=== PATIENT | female | born 1960 | race Caucasian/White ===

== ENCOUNTER 2020-03-22 17:56 | Inpatient (IN) | payer MEDICAID ==
[~2020-03-22] VITALS: Ht 152.4 cm; Wt 86.8 kg
--- NOTE | 2020-03-22 18:46 | NUR ---
DR. CASE AT BEDSIDE. PT C/O COUGH FOR 2 DAYS, DENIES FEVERS OR PHLEGM, BUT HAS HAD BODY AHCES AND FEELS WEAK. PT ON MONITOR AND OXYGEN. WAITING FOR ORDERS.
[2020-03-22] MEDS ORDERED: SODIUM CHLORIDE FLUSH 10ML SYR IVF ONE (19:00)
[2020-03-22] MEDS ORDERED: SODIUM CHLORIDE 0.9% 1,000ML IVBOLUS ONE (19:00)
[2020-03-22] MEDS ORDERED: AZITHROMYCIN 500 MG in SODIUM CHLORIDE 0.9% 250 ML IVPB ONE (19:30)
[2020-03-22] MEDS ORDERED: CEFTRIAXONE PMX 1GM/50ML 50 ML IVPB ONE (19:30)
[2020-03-22 19:43] LABS: ANION GAP 7 mmol/L (5-15); CALCIUM 9.1 mg/dL (8.5-10.1); CHLORIDE 104 mmol/L (98-107); CREATININE 1.18 mg/dL (0.55-1.02)
[2020-03-22 19:44] LABS: ALANINE AMINOTRANSFERASE 29 U/L (12-78); ALBUMIN 2.8 g/dL (3.4-5.0)
[2020-03-22 19:45] LABS: MEAN CORPUSCULAR HEMOGLOBIN 29.3 pg (27.0-34.8); MEAN CORPUSCULAR HGB CONC 32.2 g/dL (32.4-35.8); MEAN CORPUSCULAR VOLUME 91.1 fL (80-100); MEAN PLATELET VOLUME 7.9 fL (7.4-10.4); PLATELET COUNT 263 x10^3/uL (130-400); RED BLOOD COUNT 4.27 x10^6/uL (3.82-5.3); RED CELL DISTRIBUTION WIDTH 14.8 % (9.6-15.2)
[2020-03-22 19:48] LABS: ALKALINE PHOSPHATASE 117 U/L (45-117); BILIRUBIN,TOTAL 0.4 mg/dL (0.2-1.0); TOTAL PROTEIN 8.5 g/dL (6.4-8.2); TROPONIN I < 0.015 ng/mL (0.000-0.045)
[2020-03-22 19:53] LABS: T4 (THYROXINE) 11.6 mcg/dL (4.8-13.9)
[2020-03-22 20:14] LABS: BASOPHILS % (AUTO) 0 % (0-1); EOSINOPHILS # (AUTO) 0.02 x10^3/uL (0-0.4); EOSINOPHILS % (AUTO) 0 % (1-7); LYMPHOCYTES # (AUTO) 1.35 x10^3/uL (1-3.4); LYMPHOCYTES % (AUTO) 9 % (22-44); MD SCAN; MONOCYTES # (AUTO) 0.42 x10^3/uL (0.2-0.8); MONOCYTES % (AUTO) 3 % (2-9); NEUTROPHILS # (AUTO) 13.46 x10^3/uL (1.8-6.8); NEUTROPHILS % (AUTO) 88 % (42-75)
--- NOTE | 2020-03-22 20:24 | NUR ---
PT HAS POSITIVE D-DIMER SO CTA OF THE CHEST ORDERED. PT DENIES ANY NEEDS AT THIS TIME. CXR INDICATED SOME OPACITIES SO ANTIBIOTICS ORDERED.
--- NOTE | 2020-03-22 20:41 | NUR ---
PT TO CT.
[2020-03-22] MEDS ORDERED: CEFTRIAXONE PMX 1GM/50ML 50 ML ONE (20:42)
[2020-03-22] MEDS ORDERED: OMNIPAQUE 350 MG/ML, 100ML BOTTLE ONE (20:52)
--- NOTE | 2020-03-22 20:56 | NUR ---
PT BACK FROM CT. ANTIBIOTICS STARTED PER MD ORDER.
[2020-03-22] MEDS ORDERED: DEXAMETHASONE 4 MG/ML, 1ML IVPush ONE (21:00)
[2020-03-22] MEDS ORDERED: DEXAMETHASONE 4 MG/ML, 5ML ONE (21:15)
--- NOTE | 2020-03-22 21:40 | NUR ---
ADMIT MD AT BEDSIDE. WAITING FOR FURTHER ORDERS. PT DENIES ANY NEEDS AT THIS TIME. WAITING FOR BED ASSIGNMENT.
[2020-03-22] MEDS ORDERED: ACETAMINOPHEN 325 MG TABLET ONE (21:44)
--- NOTE | 2020-03-22 21:55 | NUR ---
REPORT TO YURY SOLIS.
[2020-03-22] MEDS ORDERED: IBUPROFEN 600 MG TABLET PO PRN (22:00)
[2020-03-22] MEDS ORDERED: hydrALAzine 20 MG/ML, 1ML IVPush PRN (22:00)
[2020-03-22] MEDS ORDERED: ACETAMINOPHEN 325 MG TABLET PO PRN (22:00)
[2020-03-22] MEDS ORDERED: ONDANSETRON 2MG/ML, 2ML IVPush PRN (22:00)
[2020-03-22] MEDS ORDERED: AZITHROMYCIN 500 MG in SODIUM CHLORIDE 0.9% 250 ML IV SCH (22:00)
[2020-03-22] MEDS ORDERED: CEFTRIAXONE PMX 1GM/50ML 50 ML IV SCH (22:00)
--- NOTE | 2020-03-22 22:01 | NUR ---
ATTEMPTED TO COMPLETE MEDICATION LIST BUT PT JUST HAD THE PILLS AND DID NOT KNOW THE DOSAGE OR NAMES. PER PT SHE USES [facility].
[2020-03-22] MEDS ORDERED: ENOXAPARIN 40 MG/0.4 ML ONE (22:18)
[2020-03-22] MEDS: SODIUM CHLORIDE 0.9% 1,000 ML IV SCH (22:22)
[2020-03-22] MEDS: ENOXAPARIN 40 MG/0.4 ML SQ SCH (22:22)
[2020-03-22 22:27] LABS: HCT (SEDRATE) 38.9 % (34.6-47.8)
[2020-03-22] MEDS: INSULIN LISPRO 100 UNITS/ML, PEN SQ-INSULIN SCH (22:30)
--- NOTE | 2020-03-22 22:30 | NUR ---
REPORT RECEIVED AND CARE ASSUMED. PT MEDICATED PER NOV. FSBS WNL. ANTIBIOTICS INFUSING. SINUS TACHY ON MONITOR 101 BPM. PT WITH MILDLY RAPID RESP. DENIES DISCOMFORT OR SEVERE SOB AT THIS TIME. WILL CONTINUE TO MONITOR. RESP IN TO EVAL. RECOMMENDS IS. OTHERWISE NO FURTHER ORDERS AT THIS TIME. CALL LIGHT IN REACH. PT REPOSITIONED FOR COMFORT. NO FURTHER NEEDS EXPRESSED AT THIS TIME.
--- NOTE | 2020-03-22 23:10 | NUR ---
PT ASSISTED TO BEDSIDE COMMODE. C/O INCREASED SOB WITH MOVING. VS REMAIN UNCHANGED. PT CONTINUES WITH MILD RAPID RESP AND TACHYCARDIA, OTHERWISE VSS. SINUS TACHY ON MONITOR. PT TRANSFERRED TO A HOSPITAL BED. PO WATER GIVEN PER REQUEST. CALL LIGHT IN REACH. NO FURTHER NEEDS EXPRESSED.
--- NOTE | 2020-03-23 00:05 | NUR ---
PT SLEEPING WITH NO ACUTE DISTRESS NOTED. RESP ARE RAPID. WILL CONTINUE TO MONITOR CLOSELY. PT O2 96% ON 2L NC. VSS. NSR ON MONITOR. CALL LIGHT IN REACH.
[2020-03-23 01:02] LABS: TROPONIN I < 0.015 ng/mL (0.000-0.045)
--- NOTE | 2020-03-23 01:20 | NUR ---
PT SLEEPING WITH NO ACUTE CHANGES NOTED. RESP REMAIN MILDLY RAPID. WILL CONTINUE TO MONITOR CLOSELY. OTHERWISE VSS. CALL LIGHT IN REACH.
[2020-03-23 03:19] VITALS: BP 132/73
[2020-03-23 06:58] LABS: MEAN CORPUSCULAR HEMOGLOBIN 29.4 pg (27.0-34.8); MEAN CORPUSCULAR HGB CONC 31.9 g/dL (32.4-35.8); MEAN CORPUSCULAR VOLUME 92.1 fL (80-100); MEAN PLATELET VOLUME 7.4 fL (7.4-10.4); PLATELET COUNT 253 x10^3/uL (130-400); RED BLOOD COUNT 4.01 x10^6/uL (3.82-5.3); RED CELL DISTRIBUTION WIDTH 14.8 % (9.6-15.2)
[2020-03-23 07:02] LABS: ANION GAP 11 mmol/L (5-15); CALCIUM 8.7 mg/dL (8.5-10.1); CHLORIDE 110 mmol/L (98-107); CREATININE 0.85 mg/dL (0.55-1.02)
[2020-03-23 07:07] LABS: TROPONIN I < 0.015 ng/mL (0.000-0.045)
[2020-03-23 07:40] LABS: BASOPHILS # (AUTO) 0.01 x10^3/uL (0-0.1); BASOPHILS % (AUTO) 0 % (0-1); EOSINOPHILS % (AUTO) 0 % (1-7); LYMPHOCYTES # (AUTO) 1.13 x10^3/uL (1-3.4); LYMPHOCYTES % (AUTO) 10 % (22-44); MD SCAN; MONOCYTES # (AUTO) 0.06 x10^3/uL (0.2-0.8); MONOCYTES % (AUTO) 1 % (2-9); NEUTROPHILS # (AUTO) 10.01 x10^3/uL (1.8-6.8); NEUTROPHILS % (AUTO) 89 % (42-75)
[2020-03-23 07:41] VITALS: BP 127/67
[2020-03-23] MEDS: INSULIN LISPRO 100 UNITS/ML, PEN SQ-INSULIN SCH ×4 (09:29→20:20)
[2020-03-23 12:48] VITALS: BP 125/66
[2020-03-23] MEDS: SODIUM CHLORIDE 0.9% 1,000 ML IV SCH (16:36)
[2020-03-23] MEDS ORDERED: EMPA25TA PO (17:30)
[2020-03-23] MEDS ORDERED: METF500T17 PO (17:30)
[2020-03-23] MEDS ORDERED: INSU100I34 SQ-INSULIN (17:30)
[2020-03-23] MEDS ORDERED: zantac PO (17:30)
[2020-03-23] MEDS ORDERED: LISI-167 PO (17:30)
[2020-03-23 19:10] VITALS: BP 131/62
[2020-03-23] MEDS: CEFTRIAXONE PMX 1GM/50ML 50 ML IV SCH (20:19)
[2020-03-23] MEDS: AZITHROMYCIN 500 MG in SODIUM CHLORIDE 0.9% 250 ML IV SCH (20:57)
[2020-03-23] MEDS: ENOXAPARIN 40 MG/0.4 ML SQ SCH (20:57)
[2020-03-23] MEDS ORDERED: INSULIN GLARGINE 100 UNITS/ML, PEN SQ-INSULIN SCH (21:00)
[2020-03-24 01:48] VITALS: BP 123/77
[2020-03-24] MEDS: SODIUM CHLORIDE 0.9% 1,000 ML IV SCH ×2 (03:56→18:31)
[2020-03-24 05:00] LABS: BASOPHILS # (AUTO) 0.03 x10^3/uL (0-0.1); BASOPHILS % (AUTO) 0 % (0-1); EOSINOPHILS # (AUTO) 0.01 x10^3/uL (0-0.4); EOSINOPHILS % (AUTO) 0 % (1-7); LYMPHOCYTES # (AUTO) 1.45 x10^3/uL (1-3.4); LYMPHOCYTES % (AUTO) 12 % (22-44); MD NO; MEAN CORPUSCULAR HEMOGLOBIN 29.2 pg (27.0-34.8); MEAN CORPUSCULAR HGB CONC 31.9 g/dL (32.4-35.8); MEAN CORPUSCULAR VOLUME 91.6 fL (80-100); MEAN PLATELET VOLUME 7.5 fL (7.4-10.4); MONOCYTES # (AUTO) 0.44 x10^3/uL (0.2-0.8); MONOCYTES % (AUTO) 4 % (2-9); NEUTROPHILS # (AUTO) 10.65 x10^3/uL (1.8-6.8); NEUTROPHILS % (AUTO) 85 % (42-75); PLATELET COUNT 288 x10^3/uL (130-400); RED BLOOD COUNT 3.92 x10^6/uL (3.82-5.3); RED CELL DISTRIBUTION WIDTH 14.7 % (9.6-15.2)
[2020-03-24 05:08] LABS: ANION GAP 6 mmol/L (5-15); CALCIUM 9.2 mg/dL (8.5-10.1); CHLORIDE 112 mmol/L (98-107); CREATININE 0.84 mg/dL (0.55-1.02)
[2020-03-24 07:25] VITALS: BP 126/74
[2020-03-24] MEDS ORDERED: INSULIN GLARGINE 100 UNITS/ML, PEN SQ-INSULIN ONE (08:00)
[2020-03-24] MEDS: INSULIN LISPRO 100 UNITS/ML, PEN SQ-INSULIN SCH ×4 (08:19→21:42)
[2020-03-24 12:17] VITALS: BP 113/48
[2020-03-24 20:27] VITALS: BP 143/72
[2020-03-24] MEDS ORDERED: INSULIN GLARGINE 100 UNITS/ML, PEN SQ-INSULIN SCH (21:00)
[2020-03-24] MEDS: CEFTRIAXONE PMX 1GM/50ML 50 ML IV SCH (21:07)
[2020-03-24] MEDS: ENOXAPARIN 40 MG/0.4 ML SQ SCH (21:07)
[2020-03-24] MEDS: AZITHROMYCIN 500 MG in SODIUM CHLORIDE 0.9% 250 ML IV SCH (21:42)
[2020-03-25] VITALS (7 sets, daily range): BP systolic 132–153; BP diastolic 66–84
[2020-03-25] MEDS: SODIUM CHLORIDE 0.9% 1,000 ML IV SCH ×2 (00:23→15:30)
[2020-03-25 06:23] LABS: BASOPHILS # (AUTO) 0.03 x10^3/uL (0-0.1); BASOPHILS % (AUTO) 0 % (0-1); EOSINOPHILS % (AUTO) 1 % (1-7); LYMPHOCYTES # (AUTO) 1.75 x10^3/uL (1-3.4); LYMPHOCYTES % (AUTO) 19 % (22-44); MD NO; MEAN CORPUSCULAR HEMOGLOBIN 29.2 pg (27.0-34.8); MEAN CORPUSCULAR HGB CONC 32.5 g/dL (32.4-35.8); MEAN CORPUSCULAR VOLUME 90.1 fL (80-100); MEAN PLATELET VOLUME 7.6 fL (7.4-10.4); MONOCYTES # (AUTO) 0.33 x10^3/uL (0.2-0.8); MONOCYTES % (AUTO) 4 % (2-9); NEUTROPHILS # (AUTO) 6.94 x10^3/uL (1.8-6.8); NEUTROPHILS % (AUTO) 76 % (42-75); PLATELET COUNT 256 x10^3/uL (130-400); RED BLOOD COUNT 3.72 x10^6/uL (3.82-5.3); RED CELL DISTRIBUTION WIDTH 14.6 % (9.6-15.2)
[2020-03-25 06:34] LABS: ANION GAP 8 mmol/L (5-15); CALCIUM 8.5 mg/dL (8.5-10.1); CHLORIDE 110 mmol/L (98-107); CREATININE 0.75 mg/dL (0.55-1.02)
[2020-03-25] MEDS: INSULIN LISPRO 100 UNITS/ML, PEN SQ-INSULIN SCH ×4 (07:42→21:52)
[2020-03-25] MEDS ORDERED: REMDESIVIR 200 MG in SODIUM CHLORIDE 0.9% 250 ML IVPB ONE (11:00)
[2020-03-25] MEDS: DEXAMETHASONE 4 MG TABLET PO SCH (11:08)
[2020-03-25 12:28] LABS: ALANINE AMINOTRANSFERASE 30 U/L (12-78)
[2020-03-25] MEDS: TOCILIZUMAB 600 MG in SODIUM CHLORIDE 0.9% 100 ML IVPB SCH (15:29)
[2020-03-25] MEDS ORDERED: INSULIN GLARGINE 100 UNITS/ML, PEN SQ-INSULIN SCH (21:00)
[2020-03-25] MEDS: CEFTRIAXONE PMX 1GM/50ML 50 ML IV SCH (21:47)
[2020-03-25] MEDS: ENOXAPARIN 40 MG/0.4 ML SQ SCH (21:47)
[2020-03-26 01:23] VITALS: BP 143/85
[2020-03-26 07:06] LABS: BASOPHILS # (AUTO) 0.02 x10^3/uL (0-0.1); BASOPHILS % (AUTO) 0 % (0-1); EOSINOPHILS # (AUTO) 0.05 x10^3/uL (0-0.4); EOSINOPHILS % (AUTO) 1 % (1-7); LYMPHOCYTES % (AUTO) 20 % (22-44); MD NO; MEAN CORPUSCULAR HEMOGLOBIN 29.2 pg (27.0-34.8); MEAN CORPUSCULAR HGB CONC 32.3 g/dL (32.4-35.8); MEAN CORPUSCULAR VOLUME 90.3 fL (80-100); MEAN PLATELET VOLUME 7.7 fL (7.4-10.4); MONOCYTES # (AUTO) 0.22 x10^3/uL (0.2-0.8); MONOCYTES % (AUTO) 3 % (2-9); NEUTROPHILS # (AUTO) 5.09 x10^3/uL (1.8-6.8); NEUTROPHILS % (AUTO) 76 % (42-75); PLATELET COUNT 318 x10^3/uL (130-400); RED BLOOD COUNT 4.05 x10^6/uL (3.82-5.3); RED CELL DISTRIBUTION WIDTH 14.5 % (9.6-15.2)
[2020-03-26 07:13] LABS: ALBUMIN 2.2 g/dL (3.4-5.0); ANION GAP 4 mmol/L (5-15); CALCIUM 8.7 mg/dL (8.5-10.1); CHLORIDE 109 mmol/L (98-107)
[2020-03-26 07:18] LABS: ALANINE AMINOTRANSFERASE 28 U/L (12-78); ALKALINE PHOSPHATASE 96 U/L (45-117); BILIRUBIN,TOTAL 0.2 mg/dL (0.2-1.0); CREATININE 0.68 mg/dL (0.55-1.02); TOTAL PROTEIN 7.3 g/dL (6.4-8.2)
[2020-03-26 07:56] VITALS: BP 158/88
[2020-03-26] MEDS: INSULIN LISPRO 100 UNITS/ML, PEN SQ-INSULIN SCH ×4 (08:19→20:26)
[2020-03-26] MEDS: DEXAMETHASONE 4 MG TABLET PO SCH (08:20)
[2020-03-26] MEDS: TOCILIZUMAB 600 MG in SODIUM CHLORIDE 0.9% 100 ML IVPB SCH (10:30)
[2020-03-26] MEDS: ZINC SULFATE 220 MG CAPSULE PO SCH (11:22)
[2020-03-26] MEDS: CHOLECALCIFEROL 1,000 UNIT TABLET PO SCH (11:23)
[2020-03-26] MEDS: AZITHROMYCIN 250 MG TABLET PO SCH (11:24)
[2020-03-26] MEDS: SODIUM CHLORIDE 0.9% 1,000 ML IV SCH (12:06)
[2020-03-26] MEDS: REMDESIVIR 100 MG in SODIUM CHLORIDE 0.9% 250 ML IVPB SCH (12:06)
[2020-03-26 14:45] VITALS: BP 157/84
[2020-03-26] MEDS: ASCORBIC ACID 500 MG TABLET PO SCH (16:06)
[2020-03-26] MEDS: ENOXAPARIN 40 MG/0.4 ML SQ SCH (20:24)
[2020-03-26] MEDS: CEFTRIAXONE PMX 1GM/50ML 50 ML IV SCH (20:24)
[2020-03-26] MEDS: INSULIN GLARGINE 100 UNITS/ML, PEN SQ-INSULIN SCH (20:25)
[2020-03-26] MEDS: MELATONIN 5 MG TABLET PO SCH (20:26)
[2020-03-26 21:26] VITALS: BP 162/78
[2020-03-27 01:17] VITALS: BP 161/83
[2020-03-27 06:21] LABS: ALBUMIN 2.1 g/dL (3.4-5.0); ANION GAP 5 mmol/L (5-15); CALCIUM 8.9 mg/dL (8.5-10.1); CHLORIDE 110 mmol/L (98-107)
[2020-03-27 06:25] LABS: ALANINE AMINOTRANSFERASE 40 U/L (12-78); ALKALINE PHOSPHATASE 83 U/L (45-117); BILIRUBIN,TOTAL 0.1 mg/dL (0.2-1.0); CREATININE 0.74 mg/dL (0.55-1.02); TOTAL PROTEIN 6.8 g/dL (6.4-8.2)
[2020-03-27] MEDS: INSULIN LISPRO 100 UNITS/ML, PEN SQ-INSULIN SCH ×4 (07:00→21:04)
[2020-03-27 08:06] VITALS: BP 138/71
[2020-03-27] MEDS: ZINC SULFATE 220 MG CAPSULE PO SCH (08:19)
[2020-03-27] MEDS: ASCORBIC ACID 500 MG TABLET PO SCH ×2 (08:19→17:24)
[2020-03-27] MEDS: DEXAMETHASONE 4 MG TABLET PO SCH (08:19)
[2020-03-27] MEDS: AZITHROMYCIN 250 MG TABLET PO SCH (08:20)
[2020-03-27] MEDS: CHOLECALCIFEROL 1,000 UNIT TABLET PO SCH (08:20)
[2020-03-27] MEDS: REMDESIVIR 100 MG in SODIUM CHLORIDE 0.9% 250 ML IVPB SCH (12:14)
[2020-03-27] MEDS: SODIUM CHLORIDE 0.9% 1,000 ML IV SCH (12:17)
[2020-03-27 13:17] VITALS: BP 128/63
[2020-03-27 20:26] VITALS: BP 158/81
[2020-03-27] MEDS: CEFTRIAXONE PMX 1GM/50ML 50 ML IV SCH (21:03)
[2020-03-27] MEDS: INSULIN GLARGINE 100 UNITS/ML, PEN SQ-INSULIN SCH (21:04)
[2020-03-27] MEDS: ENOXAPARIN 40 MG/0.4 ML SQ SCH (21:05)
[2020-03-27] MEDS: MELATONIN 5 MG TABLET PO SCH (21:05)
[2020-03-28] MEDS: SODIUM CHLORIDE 0.9% 1,000 ML IV SCH ×2 (04:09→19:39)
[2020-03-28 04:41] VITALS: BP 153/81
[2020-03-28 06:09] LABS: BASOPHILS # (AUTO) 0.03 x10^3/uL (0-0.1); BASOPHILS % (AUTO) 0 % (0-1); EOSINOPHILS # (AUTO) 0.06 x10^3/uL (0-0.4); EOSINOPHILS % (AUTO) 1 % (1-7); LYMPHOCYTES # (AUTO) 2.13 x10^3/uL (1-3.4); LYMPHOCYTES % (AUTO) 24 % (22-44); MD NO; MEAN CORPUSCULAR HEMOGLOBIN 29.5 pg (27.0-34.8); MEAN CORPUSCULAR VOLUME 89.3 fL (80-100); MEAN PLATELET VOLUME 7.1 fL (7.4-10.4); MONOCYTES # (AUTO) 0.36 x10^3/uL (0.2-0.8); MONOCYTES % (AUTO) 4 % (2-9); NEUTROPHILS # (AUTO) 6.38 x10^3/uL (1.8-6.8); NEUTROPHILS % (AUTO) 71 % (42-75); PLATELET COUNT 386 x10^3/uL (130-400); RED BLOOD COUNT 3.87 x10^6/uL (3.82-5.3); RED CELL DISTRIBUTION WIDTH 14.9 % (9.6-15.2)
[2020-03-28 06:18] LABS: CHLORIDE 109 mmol/L (98-107)
[2020-03-28 06:36] LABS: ALANINE AMINOTRANSFERASE 44 U/L (12-78); ALBUMIN 2.3 g/dL (3.4-5.0); ALKALINE PHOSPHATASE 78 U/L (45-117); ANION GAP 6 mmol/L (5-15); BILIRUBIN,TOTAL 0.2 mg/dL (0.2-1.0); CALCIUM 8.7 mg/dL (8.5-10.1); CREATININE 0.75 mg/dL (0.55-1.02); TOTAL PROTEIN 6.6 g/dL (6.4-8.2)
[2020-03-28] MEDS: INSULIN LISPRO 100 UNITS/ML, PEN SQ-INSULIN SCH ×4 (07:00→21:07)
[2020-03-28 07:46] VITALS: BP 119/69
[2020-03-28] MEDS: DEXAMETHASONE 4 MG TABLET PO SCH (09:40)
[2020-03-28] MEDS: AZITHROMYCIN 250 MG TABLET PO SCH (09:40)
[2020-03-28] MEDS: CHOLECALCIFEROL 1,000 UNIT TABLET PO SCH (09:40)
[2020-03-28] MEDS: ASCORBIC ACID 500 MG TABLET PO SCH ×2 (09:40→17:36)
[2020-03-28] MEDS: ZINC SULFATE 220 MG CAPSULE PO SCH (09:41)
[2020-03-28] MEDS ORDERED: ENOXAPARIN 40 MG/0.4 ML SQ SCH (10:00)
[2020-03-28] MEDS: REMDESIVIR 100 MG in SODIUM CHLORIDE 0.9% 250 ML IVPB SCH (12:12)
[2020-03-28 12:30] VITALS: BP 126/85
[2020-03-28 13:17] LABS: ALANINE AMINOTRANSFERASE 60 U/L (12-78); ALBUMIN 2.3 g/dL (3.4-5.0); ANION GAP 5 mmol/L (5-15); CALCIUM 8.6 mg/dL (8.5-10.1); CHLORIDE 109 mmol/L (98-107); CREATININE 0.83 mg/dL (0.55-1.02)
[2020-03-28 13:19] LABS: ALKALINE PHOSPHATASE 80 U/L (45-117); BILIRUBIN,TOTAL 0.2 mg/dL (0.2-1.0); TOTAL PROTEIN 6.7 g/dL (6.4-8.2)
[2020-03-28 19:43] VITALS: BP 126/72
[2020-03-28] MEDS: CEFTRIAXONE PMX 1GM/50ML 50 ML IV SCH (21:06)
[2020-03-28] MEDS: MELATONIN 5 MG TABLET PO SCH (21:06)
[2020-03-28] MEDS: INSULIN GLARGINE 100 UNITS/ML, PEN SQ-INSULIN SCH (21:07)
[2020-03-28] MEDS: ENOXAPARIN 80 MG/0.8 ML SQ SCH (22:54)
[2020-03-29 01:18] VITALS: BP 154/76
[2020-03-29 06:59] LABS: ALANINE AMINOTRANSFERASE 68 U/L (12-78); ALBUMIN 2.3 g/dL (3.4-5.0); ANION GAP 3 mmol/L (5-15); CALCIUM 9.2 mg/dL (8.5-10.1); CHLORIDE 110 mmol/L (98-107); CREATININE 0.73 mg/dL (0.55-1.02)
[2020-03-29 07:02] LABS: ALKALINE PHOSPHATASE 74 U/L (45-117); BILIRUBIN,TOTAL 0.2 mg/dL (0.2-1.0); TOTAL PROTEIN 6.4 g/dL (6.4-8.2)
[2020-03-29] MEDS: INSULIN LISPRO 100 UNITS/ML, PEN SQ-INSULIN SCH ×4 (07:44→21:16)
[2020-03-29 07:45] VITALS: BP 148/79
[2020-03-29] MEDS: DEXAMETHASONE 4 MG TABLET PO SCH (07:48)
[2020-03-29] MEDS: ZINC SULFATE 220 MG CAPSULE PO SCH (07:48)
[2020-03-29] MEDS: ASCORBIC ACID 500 MG TABLET PO SCH ×2 (07:48→16:11)
[2020-03-29] MEDS: CHOLECALCIFEROL 1,000 UNIT TABLET PO SCH (07:48)
[2020-03-29] MEDS: ENOXAPARIN 80 MG/0.8 ML SQ SCH (11:34)
[2020-03-29] MEDS: SODIUM CHLORIDE 0.9% 1,000 ML IV SCH (11:34)
[2020-03-29] MEDS: REMDESIVIR 100 MG in SODIUM CHLORIDE 0.9% 250 ML IVPB SCH (11:35)
[2020-03-29 15:44] VITALS: BP 139/77
[2020-03-29 20:44] VITALS: BP 120/82
[2020-03-29] MEDS: MELATONIN 5 MG TABLET PO SCH (21:11)
[2020-03-29] MEDS: INSULIN GLARGINE 100 UNITS/ML, PEN SQ-INSULIN SCH (21:15)
[2020-03-30] MEDS: ENOXAPARIN 80 MG/0.8 ML SQ SCH ×3 (00:10→23:00)
[2020-03-30 01:29] VITALS: BP 140/88
[2020-03-30] MEDS: SODIUM CHLORIDE 0.9% 1,000 ML IV SCH ×2 (02:41→16:29)
[2020-03-30 07:39] VITALS: BP 129/84
[2020-03-30] MEDS: INSULIN LISPRO 100 UNITS/ML, PEN SQ-INSULIN SCH ×4 (07:44→20:05)
[2020-03-30] MEDS: ZINC SULFATE 220 MG CAPSULE PO SCH (07:45)
[2020-03-30] MEDS: DEXAMETHASONE 4 MG TABLET PO SCH (07:45)
[2020-03-30] MEDS: ASCORBIC ACID 500 MG TABLET PO SCH ×2 (07:45→16:28)
[2020-03-30] MEDS: CHOLECALCIFEROL 1,000 UNIT TABLET PO SCH (07:45)
[2020-03-30 10:43] LABS: ALANINE AMINOTRANSFERASE 66 U/L (12-78); ALBUMIN 2.5 g/dL (3.4-5.0); ANION GAP 6 mmol/L (5-15); CALCIUM 8.7 mg/dL (8.5-10.1); CHLORIDE 109 mmol/L (98-107); CREATININE 0.87 mg/dL (0.55-1.02)
[2020-03-30 10:45] LABS: ALKALINE PHOSPHATASE 76 U/L (45-117); BILIRUBIN,TOTAL 0.2 mg/dL (0.2-1.0); TOTAL PROTEIN 6.5 g/dL (6.4-8.2)
[2020-03-30 13:40] VITALS: BP 131/78
[2020-03-30 19:28] VITALS: BP 156/78
[2020-03-30] MEDS: MELATONIN 5 MG TABLET PO SCH (20:04)
[2020-03-30] MEDS: INSULIN GLARGINE 100 UNITS/ML, PEN SQ-INSULIN SCH (20:05)
[2020-03-31 01:25] VITALS: BP 130/78
[2020-03-31] MEDS: SODIUM CHLORIDE 0.9% 1,000 ML IV SCH ×2 (05:11→22:46)
[2020-03-31] MEDS: INSULIN LISPRO 100 UNITS/ML, PEN SQ-INSULIN SCH ×4 (07:57→21:03)
[2020-03-31] MEDS: DEXAMETHASONE 4 MG TABLET PO SCH (08:14)
[2020-03-31] MEDS: CHOLECALCIFEROL 1,000 UNIT TABLET PO SCH (08:14)
[2020-03-31] MEDS: ZINC SULFATE 220 MG CAPSULE PO SCH (08:14)
[2020-03-31] MEDS: ASCORBIC ACID 500 MG TABLET PO SCH ×2 (08:14→16:42)
[2020-03-31 08:16] VITALS: BP 131/80
[2020-03-31] MEDS: ENOXAPARIN 80 MG/0.8 ML SQ SCH ×2 (11:38→22:44)
[2020-03-31 12:59] VITALS: BP 124/75
[2020-03-31] MEDS ORDERED: ASCORBIC ACID 250 MG TAB ONE (16:35)
[2020-03-31 20:02] VITALS: BP 129/77
[2020-03-31] MEDS: MELATONIN 5 MG TABLET PO SCH (21:02)
[2020-03-31] MEDS: INSULIN GLARGINE 100 UNITS/ML, PEN SQ-INSULIN SCH (21:03)
[2020-04-01 01:06] VITALS: BP 127/76
[2020-04-01] MEDS: ZINC SULFATE 220 MG CAPSULE PO SCH (08:34)
[2020-04-01] MEDS: ASCORBIC ACID 500 MG TABLET PO SCH ×2 (08:34→17:02)
[2020-04-01] MEDS: DEXAMETHASONE 4 MG TABLET PO SCH (08:34)
[2020-04-01] MEDS: INSULIN LISPRO 100 UNITS/ML, PEN SQ-INSULIN SCH ×4 (08:35→23:52)
[2020-04-01] MEDS: CHOLECALCIFEROL 1,000 UNIT TABLET PO SCH (08:35)
[2020-04-01 08:45] VITALS: BP 145/85
[2020-04-01] MEDS: SODIUM CHLORIDE 0.9% 1,000 ML IV SCH ×2 (11:20→23:53)
[2020-04-01] MEDS: ENOXAPARIN 80 MG/0.8 ML SQ SCH ×2 (11:29→23:51)
[2020-04-01 14:49] VITALS: BP 131/78
[2020-04-01 19:44] VITALS: BP 145/82
[2020-04-01] MEDS: MELATONIN 5 MG TABLET PO SCH (23:51)
[2020-04-01] MEDS: INSULIN GLARGINE 100 UNITS/ML, PEN SQ-INSULIN SCH (23:52)
[2020-04-02 03:45] VITALS: BP 120/77
[2020-04-02 06:47] LABS: BASOPHILS # (AUTO) 0.04 x10^3/uL (0-0.1); BASOPHILS % (AUTO) 0 % (0-1); EOSINOPHILS # (AUTO) 0.05 x10^3/uL (0-0.4); EOSINOPHILS % (AUTO) 0 % (1-7); LYMPHOCYTES # (AUTO) 3.15 x10^3/uL (1-3.4); LYMPHOCYTES % (AUTO) 30 % (22-44); MD NO; MEAN CORPUSCULAR HEMOGLOBIN 28.9 pg (27.0-34.8); MEAN CORPUSCULAR VOLUME 90.3 fL (80-100); MEAN PLATELET VOLUME 7.4 fL (7.4-10.4); MONOCYTES # (AUTO) 0.44 x10^3/uL (0.2-0.8); MONOCYTES % (AUTO) 4 % (2-9); NEUTROPHILS # (AUTO) 6.91 x10^3/uL (1.8-6.8); NEUTROPHILS % (AUTO) 65 % (42-75); PLATELET COUNT 338 x10^3/uL (130-400); RED BLOOD COUNT 3.98 x10^6/uL (3.82-5.3); RED CELL DISTRIBUTION WIDTH 15.7 % (9.6-15.2)
[2020-04-02 06:48] VITALS: BP 126/83
[2020-04-02] MEDS: INSULIN LISPRO 100 UNITS/ML, PEN SQ-INSULIN SCH ×2 (07:00→11:24)
[2020-04-02] MEDS: CHOLECALCIFEROL 1,000 UNIT TABLET PO SCH (09:38)
[2020-04-02] MEDS: ASCORBIC ACID 500 MG TABLET PO SCH (09:38)
[2020-04-02] MEDS: ENOXAPARIN 80 MG/0.8 ML SQ SCH (09:38)
[2020-04-02] MEDS: DEXAMETHASONE 4 MG TABLET PO SCH (09:38)
[2020-04-02] MEDS: ZINC SULFATE 220 MG CAPSULE PO SCH (09:38)
[2020-04-02] MEDS ORDERED: MELA5TAB14 PO (11:02)
[2020-04-02] MEDS ORDERED: ASCO500T9 PO (11:02)
[2020-04-02] MEDS ORDERED: DEXA4TAB66 PO (11:02)
[2020-04-02] MEDS ORDERED: CHOL10003 PO (11:02)
[2020-04-02] MEDS ORDERED: ZINC220C7 PO (11:02)
== END 2020-04-02 13:20 | disposition home or self-care (01) | DRG 871 ==
LOC: ED 21:52 → EDIP 22:07 → 4NW 03-23 02:53
PROVIDERS: ADMIT Hospitalist; ATTEND Internal Medicine
DX: A41.89 Other specified sepsis (principal); J12.89 Other viral pneumonia; J15.9 Unspecified bacterial pneumonia; J96.01 Acute respiratory failure with hypoxia; U07.1 COVID-19; F32.9 Major depressive disorder, single episode, unspecified; I10 Essential (primary) hypertension; E11.65 Type 2 diabetes mellitus with hyperglycemia; E78.00 Pure hypercholesterolemia, unspecified; E78.5 Hyperlipidemia, unspecified; T38.0X5A Adverse effect of glucocorticoids and synthetic analogues, initial encounter; Z56.0 Unemployment, unspecified; Z68.37 Body mass index [BMI] 37.0-37.9, adult; Z79.4 Long term (current) use of insulin; Z79.899 Other long term (current) drug therapy; Z83.3 Family history of diabetes mellitus; Z87.891 Personal history of nicotine dependence; Z99.81 Dependence on supplemental oxygen
CPT/HCPCS: 36415; 71045; 71275; 80048; 80053; 82728; 82962; 83036; 83605; 83615; 83735; 83880; 84100; 84145; 84436; 84443; 84450; 84460; 84484; 85025; 85379; 85651; 86738; 87040; 87070; 87205; 87635; 93005; 96361; 96365; 96375; 99285; G0378; J0456; J0696; J1100; J1650; Q9967; J1815; J3262; J7030; J7050; U0001-CS

== ENCOUNTER 2020-05-06 20:02 | Emergency (ER) | payer MEDICAID ==
[~2020-05-06] VITALS: Ht 154.9 cm; Wt 92.3 kg
[~2020-05-06 20:02] MED LIST: ASCO500T9 PO; CHOL10003 PO; DEXA4TAB66 PO; EMPA25TA PO; INSU100I34 SQ-INSULIN; LISI-167 PO; MELA5TAB14 PO; METF500T17 PO; ZINC220C7 PO; zantac PO
--- NOTE | 2020-05-06 20:46 | NUR ---
pt to ed from home. c/o bilat LE swelling/redness 1+wk. also got sunburned. legs red. seen pcp and was referred to phsyical therapy. 4+ pitting edema tight turgor pain w/ ambulation. denies cp/sob. lungs ctab. vss. tachy 100s. awayoko fuchs. call parisi in reach. as
--- NOTE | 2020-05-06 21:01 | NUR ---
PLAN FOR LABS XR. REPORT TO CALVIN SOLIS.
[2020-05-06 21:11] LABS: BASOPHILS # (AUTO) 0.04 x10^3/uL (0-0.1); BASOPHILS % (AUTO) 1 % (0-1); EOSINOPHILS # (AUTO) 0.11 x10^3/uL (0-0.4); EOSINOPHILS % (AUTO) 2 % (1-7); LYMPHOCYTES # (AUTO) 2.54 x10^3/uL (1-3.4); LYMPHOCYTES % (AUTO) 35 % (22-44); MD NO; MEAN CORPUSCULAR HEMOGLOBIN 30.2 pg (27.0-34.8); MEAN CORPUSCULAR HGB CONC 32.8 g/dL (32.4-35.8); MEAN CORPUSCULAR VOLUME 92.1 fL (80-100); MEAN PLATELET VOLUME 7.4 fL (7.4-10.4); MONOCYTES # (AUTO) 0.51 x10^3/uL (0.2-0.8); MONOCYTES % (AUTO) 7 % (2-9); NEUTROPHILS # (AUTO) 4.15 x10^3/uL (1.8-6.8); NEUTROPHILS % (AUTO) 57 % (42-75); PLATELET COUNT 234 x10^3/uL (130-400); RED BLOOD COUNT 3.91 x10^6/uL (3.82-5.3); RED CELL DISTRIBUTION WIDTH 17.6 % (9.6-15.2)
[2020-05-06 21:21] LABS: ANION GAP 7 mmol/L (5-15); CALCIUM 9.1 mg/dL (8.5-10.1); CHLORIDE 106 mmol/L (98-107); CREATININE 1.07 mg/dL (0.55-1.02)
--- NOTE | 2020-05-06 21:40 | NUR ---
Report received from WILL Gonsales. This RN to assume care.
[2020-05-06 22:35] LABS: TROPONIN I < 0.015 ng/mL (0.000-0.045)
[2020-05-06 23:34] VITALS: BP 137/63
== END 2020-05-06 23:45 | disposition home or self-care (01) ==
LOC: ED 23:03
DX: L03.115 Cellulitis of right lower limb (principal); L03.116 Cellulitis of left lower limb; R60.0 Localized edema; R00.0 Tachycardia, unspecified; I10 Essential (primary) hypertension; E11.9 Type 2 diabetes mellitus without complications; E78.00 Pure hypercholesterolemia, unspecified; E78.5 Hyperlipidemia, unspecified; Z87.891 Personal history of nicotine dependence
CPT/HCPCS: 36415; 71046; 80048; 83605; 83880; 84145; 84484; 85025; 87040; 93005; 93970; 99285